=== PATIENT | male | born 1965 | race Caucasian/White ===

== ENCOUNTER 2018-09-04 05:48 | Observation (INO) ==
--- NOTE | 2018-09-02 15:48 | EKG Report ---
Test Performed on : 09/02/2018 3:34:08 PM Test Reason : PAT Blood Pressure : / mmHG Vent. Rate : 065 BPM Atrial Rate : 065 BPM P-R Int : 136 ms QRS Dur : 106 ms QT Int : 398 ms P-R-T Axes : 025 032 016 degrees QTc Int : 413 ms Normal sinus rhythm. Normal ECG When compared with ECG of 11-FEB-2016 06:39, Vent. rate has increased BY 22 BPM Confirmed by Roberto MENCHACA, Jorje Ferrer ([id number]) on 09/04/2018 8:20:09 AM
--- NOTE | 2018-09-02 16:19 | Diag Imaging Result Doc PS360 ---
EXAM: CHEST-2 VIEWS HISTORY: PAT TECHNIQUE: Chest two views COMPARISON: 05/03/2015 FINDINGS: The lungs are well expanded. The heart is not enlarged. The vessels are not distended. There are no infiltrates. No pleural effusions. IMPRESSION: No acute abnormality. Electronically signed by Abiodun Enamorado 09/02/2018 4:16 PM
[2018-09-02 16:46] LABS: URINE SOURCE VOIDED
[2018-09-02 16:48] LABS: BASO# 0.05 X1000 (0.0-0.2); BASO% 0.5 % (0.0-0.8); EOS# 0.41 X1000 (0.0-0.7); EOS% 4.4 % (0.0-10.0); HEMATOCRIT 44.5 % (42.0-52.0); HEMOGLOBIN 15.2 g/dL (14.0-18.0); IMM GRAN# 0.03 X1000 (0.0-0.04); IMM GRAN% 0.3 % (0.0-0.5); LYMPH# 1.74 X1000 (1.2-3.4); LYMPH% 18.8 % (20.5-51.1); MCH 31.4 PG (27-31); MCHC 34.2 g/dL (33-37); MCV 91.9 FL (81-99); MONO# 0.59 X1000 (0.11-0.59); MONO% 6.4 % (1.7-9.3); MPV 10.7 FL (7.4-10.4); NEUT# 6.44 X1000 (1.4-6.5); NEUT% 69.6 % (42.2-75.2); PLT 206 X1000 (130-400); RBC 4.84 XMIL (4.7-6.1); WBC 9.26 X1000 (4.8-10.8)
[2018-09-02 16:51] LABS: BILIRUBIN URINE NEGATIVE (NEGATIVE); BLOOD URINE NEGATIVE (NEGATIVE); COLOR YELLOW; GLUCOSE URINE NEGATIVE (NEGATIVE); KETONE URINE NEGATIVE (NEGATIVE); LEUKOCYTES URINE NEGATIVE (NEGATIVE); NITRITE URINE NEGATIVE (NEGATIVE); PH URINE 6.5; PROTEIN URINE NEGATIVE (NEGATIVE); SP GRAVITY URINE 1.017; TURBIDITY URINE CLEAR (CLEAR); UROBILINOGEN URINE NORMAL (NORMAL)
[2018-09-02 16:52] LABS: UR EPITHELIAL CELLS <10 /HPF (<10); URINE BACTERIA NEGATIVE /HPF; URINE RBC <10 /HPF (<10); URINE WBC <10 /HPF (<10)
[2018-09-02 17:14] LABS: ALB/GLOB RATIO 1.7; ALBUMIN 4.4 g/dL (3.5-5.0); CALCIUM 9.4 mg/dL (8.8-10.2); CREATININE 1.3 mg/dL (0.7-1.2); POTASSIUM 4.6 mmol/L (3.5-5.1); TOTAL BILIRUBIN 0.37 mg/dL (0.20-1.00)
[2018-09-04] MEDS ORDERED: XYLOCAINE-MPF 2% ONE ×2 (06:32→09:05)
[2018-09-04] MEDS ORDERED: DIPRIVAN 1% ONE ×2 (06:32→08:07)
[2018-09-04] MEDS ORDERED: QUELICIN (DOSE) ONE ×2 (06:34→09:05)
[2018-09-04] MEDS ORDERED: LR 1,000 ML ONE ×2 (06:40→08:20)
[2018-09-04] MEDS ORDERED: KEFZOL 1 GM/D5W 1 GM/50 ML IVPB ONE (06:40)
[2018-09-04] MEDS ORDERED: TRANSDERM-SCOP ONE (07:40)
[2018-09-04] MEDS ORDERED: SENSORCAINE 0.5%-EPI 1:200,000 ONE (08:20)
[2018-09-04] MEDS ORDERED: ROBINUL ONE ×2 (09:05→10:18)
[2018-09-04] MEDS ORDERED: SODIUM CHLORIDE 0.9% 10 ML ONE (09:05)
[2018-09-04] MEDS ORDERED: DECADRON ONE (09:05)
[2018-09-04] MEDS ORDERED: ZOFRAN ONE (09:05)
[2018-09-04] MEDS ORDERED: NORCURON ONE (09:05)
[2018-09-04] MEDS ORDERED: NEOSTIGMINE ONE (09:18)
[2018-09-04] MEDS ORDERED: TORADOL ONE (09:46)
[2018-09-04] MEDS ORDERED: D5 1/2 NS 1,000 ML ONE (11:32)
[2018-09-04] MEDS: MORPHINE ONE ×2 (11:37→11:42)
[2018-09-04] MEDS ORDERED: NORCO-10 ONE (11:41)
--- NOTE | 2018-09-04 11:42 | OPERATIVE NOTE ---
PROCEDURE DATE: 09/04/2018 PREOPERATIVE DIAGNOSIS: 1. Recurrent ventral hernia. 2. Previous umbilical hernia repair 10 years ago. 3. New hernia was 3 to 4 inches superior to the previous hernia repair. PROCEDURE: Laparoscopy, laparotomy with recurrent hernia repair. DESCRIPTION OF PROCEDURE IN DETAIL: The patient was brought to the operating room. After satisfactory induction of IV and endotracheal anesthesia, athrombic TEDs were placed. His abdomen was broadly prepped and draped in the appropriate manner. Initially, a right epigastric approach was used to place a 10 mm trocar with Marcaine with epinephrine placed. The abdomen was insufflated. Examination revealed incarcerated omental contents and a new hernia superior to the previous mesh. The mesh from 2008 was seen with fairly dense omental and 1 small bowel adhesion. The left side of the abdomen was subsequently infiltrated, and a 10 and a 5 mm trocar were placed. With manual extraction, the omental contents in the new hernia were reduced with electrocautery and manual pulling. There was no bowel involvement in this. The previous mesh had some omental adhesions, as well as 1 small bowel adhesion. These were peeled down with no evidence of small bowel injury. The area was then marked; it appeared to be covered by 15 round Parietex mesh proximal to the old mesh with a lower border overlapping the old 8 mm mesh. With the Cole technique, this was used to tack-up every one of the Cole sutures pulled through and, for this reason, attempts at repair were unsuccessful. For this reason, a small laparotomy incision was made and the hernia defect was closed with #1 Prolene. The mesh was tacked to the fascia with 0 Surgilon. This covered the defect completely. On completion and after accounting for all laparotomy sponges, the closure was initiated. The fascia of the open defect was closed with interrupted 0 Prolene, subcutaneous was closed with 3-0 Vicryl, skin itself with stainless steel clips. The Hernández area underwent a Surgilon closure of the fascial defect, and the remaining incisions were all closed with stainless steel clips. Sterile dressing and abdominal binder were applied. The patient was subsequently awakened and extubated in the operating room and transferred to recovery. Estimated blood loss was 10-20 mL. cc: Tima Bernal MD
[2018-09-04] MEDS: D5 1/2 NS 1,000 ML IV SCH ×2 (13:18→21:19)
[2018-09-04] MEDS: NORCO-10 PO PRN ×2 (14:31→19:49)
[2018-09-04] MEDS: NEURONTIN PO SCH (17:51)
[2018-09-04] MEDS: MORPHINE IV PRN (17:52)
[2018-09-04] MEDS: ZOFRAN IV PRN (18:20)
[2018-09-04] MEDS: PERIDEX MT SCH (21:12)
[2018-09-04 22:07] LABS: URINE SOURCE CATH
[2018-09-05 00:36] LABS: BILIRUBIN URINE NEGATIVE (NEGATIVE); BLOOD URINE NEGATIVE (NEGATIVE); COLOR YELLOW; GLUCOSE URINE NEGATIVE (NEGATIVE); KETONE URINE NEGATIVE (NEGATIVE); LEUKOCYTES URINE NEGATIVE (NEGATIVE); NITRITE URINE NEGATIVE (NEGATIVE); PH URINE 6.5; PROTEIN URINE TRACE mg/dL (NEGATIVE); SP GRAVITY URINE 1.021; TURBIDITY URINE CLEAR (CLEAR); UROBILINOGEN URINE NORMAL (NORMAL)
[2018-09-05 00:42] LABS: UR EPITHELIAL CELLS <10 /HPF (<10); URINE BACTERIA NEGATIVE /HPF; URINE RBC <10 /HPF (<10); URINE WBC <10 /HPF (<10)
[2018-09-05] MEDS: D5 1/2 NS 1,000 ML IV SCH ×3 (01:46→10:15)
[2018-09-05] MEDS: ZOFRAN IV PRN ×2 (06:14→12:24)
[2018-09-05] MEDS: NORCO-10 PO PRN ×2 (06:14→10:39)
[2018-09-05 06:48] LABS: BASO# 0.01 X1000 (0.0-0.2); BASO% 0.1 % (0.0-0.8); EOS# 0.05 X1000 (0.0-0.7); EOS% 0.4 % (0.0-10.0); HEMATOCRIT 40.1 % (42.0-52.0); HEMOGLOBIN 13.3 g/dL (14.0-18.0); IMM GRAN# 0.02 X1000 (0.0-0.04); IMM GRAN% 0.2 % (0.0-0.5); LYMPH# 1.22 X1000 (1.2-3.4); LYMPH% 9.4 % (20.5-51.1); MCH 31.6 PG (27-31); MCHC 33.2 g/dL (33-37); MCV 95.2 FL (81-99); MONO# 0.97 X1000 (0.11-0.59); MONO% 7.4 % (1.7-9.3); MPV 10.3 FL (7.4-10.4); NEUT# 10.77 X1000 (1.4-6.5); NEUT% 82.5 % (42.2-75.2); PLT 189 X1000 (130-400); RBC 4.21 XMIL (4.7-6.1); RDW 13.1 % (11.5-14.5); WBC 13.04 X1000 (4.8-10.8)
[2018-09-05 07:33] LABS: AGAP 10; BUN 17 mg/dL (8-22); CALCIUM 8.1 mg/dL (8.8-10.2); CHLORIDE 104 mmol/L (98-107); COSMO 280; CREATININE 1.1 mg/dL (0.7-1.2); ESTIMATED GFR > 60; GLUCOSE 110 mg/dL (70-104); POTASSIUM 4.6 mmol/L (3.5-5.1); SODIUM 139 mmol/L (136-145); TCO2 25 mmol/L (25-35)
[2018-09-05 07:48] VITALS: BP 112/64
[2018-09-05] MEDS: NEURONTIN PO SCH ×2 (08:22→12:24)
[2018-09-05] MEDS: PERIDEX MT SCH (08:23)
[2018-09-05] MEDS ORDERED: FLOMAX PO ONE (09:19)
[2018-09-05] MEDS: MORPHINE IV PRN (12:24)
== END 2018-09-05 12:52 | disposition home or self-care (01) ==
LOC: OR 05:48 → DIRADM 12:36 → INTOOBSV 12:36 → 4N 12:37
PROVIDERS: ADMIT Surgery; ATTEND Surgery
CPT/HCPCS: 71020; 71046; 80048; 80053; 81001; 84153; 85025; 93005; 93010; 94761; 94799; A9270; C1781; G0103; J0330; J0690; J1100; J1885; J2270; J2405; J7120; XXXXX

== ENCOUNTER 2018-09-07 15:01 | Inpatient (IN) ==
[2018-09-07] MEDS ORDERED: ZOSYN 3.375 GM in NS 50 ML IV ONE (15:24)
[2018-09-07] MEDS ORDERED: VANCOMYCIN 1 GM/NS 1 GM/250 ML IVPB IV ONE (15:24)
[2018-09-07] MEDS ORDERED: NS 3,500 ML IV ONE (15:24)
[2018-09-07] MEDS ORDERED: ZOFRAN IV ONE ×2 (15:26→19:24)
[2018-09-07] MEDS ORDERED: MORPHINE IV ONE ×2 (15:26→18:59)
[2018-09-07 16:08] LABS: AGAP 11; ALB/GLOB RATIO 1.6; ALBUMIN 3.7 g/dL (3.5-5.0); ALKALINE PHOSPHATASE 96 U/L (32-122); BASO# 0.02 X1000 (0.0-0.2); BASO% 0.2 % (0.0-0.8); BUN 17 mg/dL (8-22); CALCIUM 8.5 mg/dL (8.8-10.2); CHLORIDE 104 mmol/L (98-107); CK PROFILE 175 U/L (24-204); COSMO 282; CREATININE 1.2 mg/dL (0.7-1.2); EOS# 0.14 X1000 (0.0-0.7); EOS% 1.1 % (0.0-10.0); ESTIMATED GFR > 60; GLUCOSE 120 mg/dL (70-104); GOT 33 U/L (10-34); GPT 42 U/L (10-44); HEMATOCRIT 43.1 % (42.0-52.0); HEMOGLOBIN 14.4 g/dL (14.0-18.0); IMM GRAN# 0.04 X1000 (0.0-0.04); IMM GRAN% 0.3 % (0.0-0.5); LYMPH# 0.29 X1000 (1.2-3.4); LYMPH% 2.3 % (20.5-51.1); MCH 31.6 PG (27-31); MCHC 33.4 g/dL (33-37); MCV 94.5 FL (81-99); MONO# 0.54 X1000 (0.11-0.59); MONO% 4.2 % (1.7-9.3); MPV 10.4 FL (7.4-10.4); NEUT# 11.76 X1000 (1.4-6.5); NEUT% 91.9 % (42.2-75.2); PLT 157 X1000 (130-400); RBC 4.56 XMIL (4.7-6.1); RDW 13.1 % (11.5-14.5); SODIUM 140 mmol/L (136-145); TCO2 25 mmol/L (25-35); TOTAL BILIRUBIN 2.39 mg/dL (0.20-1.00); WBC 12.79 X1000 (4.8-10.8)
[2018-09-07 16:17] LABS: INR 1.03; PROTIME 14.3 Seconds (11.0-16.0); PTT 26.7 Seconds (22.3-41.8)
[2018-09-07 16:35] LABS: EOS 1 % (1-10); LYMPHS 4 % (21-51); MONO 4 % (1-9); SEGS 91 % (42-75)
[2018-09-07 17:13] LABS: URINE SOURCE CLEAN CATCH
[2018-09-07 17:17] LABS: BILIRUBIN URINE SMALL (NEGATIVE); BLOOD URINE SMALL (NEGATIVE); COLOR YELLOW; GLUCOSE URINE NEGATIVE (NEGATIVE); KETONE URINE 40 mg/dL (NEGATIVE); LEUKOCYTES URINE NEGATIVE (NEGATIVE); NITRITE URINE NEGATIVE (NEGATIVE); PROTEIN URINE 200 mg/dL (NEGATIVE); SP GRAVITY URINE 1.033; TURBIDITY URINE HAZY (CLEAR); UR EPITHELIAL CELLS <10 /HPF (<10); URINE BACTERIA NEGATIVE /HPF; URINE RBC <10 /HPF (<10); URINE WBC <10 /HPF (<10); UROBILINOGEN URINE 4 mg/dL (NORMAL)
--- NOTE | 2018-09-07 18:39 | Diag Imaging Result Doc PS360 ---
EXAM: CT ABD/PELVIS/PULM ARTERIES INDICATION: chest pain, abd pain, s/p surgery x 4 days TECHNIQUE: This exam was performed using automated exposure control, adjustment of mA or kV according to patient size, and/or use of iterative reconstruction technique. Thin section axial images through the chest and 3-D MIPS were obtained. Conventional imaging through the abdomen and pelvis was performed. COMPARISON: 02/10/2016 FINDINGS: CTA CHEST: The pulmonary artery contrast bolus is somewhat suboptimal with morbid contrast in the aorta. This may limit sensitivity for detecting small distal pulmonary emboli. However, there are no discrete pulmonary artery filling defect to indicate pulmonary embolism. There is no evidence of aortic dissection or aneurysm. There is no cardiomegaly. There is no evidence of significant mediastinal or hilar lymphadenopathy. There is bilateral dependent subsegmental atelectasis at the mid and lower lung zones, mainly in the lower lobes. The lungs are clear, otherwise. There is no pleural fluid collection and no pneumothorax. CT ABDOMEN/PELVIS: The liver, gallbladder, spleen, pancreas, and adrenal glands are essentially unremarkable. There are a couple of small simple appearing renal cysts bilaterally. The kidneys are unremarkable, otherwise. The urinary bladder is unremarkable. There has been a very recent ventral abdominal wall hernia repair. There are droplets of postsurgical gas at the ventral abdominal wall. Surgical mesh is noted. Only a small hernia containing fat remains. There is postsurgical stranding involving the mesentery of the ventral abdominal wall. There is a small fluid collection underlying the surgical mesh that probably represents a seroma measuring up to 8.1 x 1.6 cm axially. There are multiple distended loops of small bowel with air-fluid levels. The distal small bowel is nondistended. This distention probably represents postsurgical ileus. However, there is a loop of small bowel that underlies the surgical site that exhibits nonspecific mild to moderate wall thickening. The remainder of the GI tract is grossly unremarkable. IMPRESSION: 1.No evidence of pulmonary embolus. 2.Bilateral subsegmental atelectasis. 3.Extensive postsurgical changes related to a very recent ventral abdominal wall hernia repair as detailed above. 4.Multiple distended loops of small bowel proximal to the surgical site that probably represents postsurgical ileus. However, there is a loop of small bowel that underlies the surgical mesh that exhibits mild to moderate wall thickening. The distal small bowel is decompressed. Electronically signed by Derek Recio 09/07/2018 6:36 PM
[2018-09-07] MEDS ORDERED: MORPHINE IV PRN (19:53)
[2018-09-07] MEDS ORDERED: NS 1,000 ML IV ONE (19:53)
[2018-09-07] MEDS ORDERED: DULCOLAX PR ONE (21:11)
[2018-09-07] MEDS: ROBAXIN PO SCH (21:25)
[2018-09-07] MEDS ORDERED: ZOSYN 3.375 GM in NS 50 ML IV SCH (22:00)
--- NOTE | 2018-09-07 22:09 | PROVIDER DOCUMENTATION ---
This chart was entered by Nancy Aguilar Scribe, acting as scribe for Anant Santana MD. HPI-General Adult - General Chief Complaint: Post Op Complaint Stated Complaint: ABDOMINAL PAIN/NAUSEA Time Seen by Provider: 09/07/18 15:07 Source: patient Allergies/Adverse Reactions: Patient Allergies Allergy/AdvReac Type Severity Reaction Status Date / Time hydromorphone [From Dilaudid] AdvReac NAUSEA/VOMI Verified 09/02/18 15:31 TING Home Medications: Home Medication List Medication Instructions Recorded Confirmed Last Taken Type Gabapentin 1,200 mg PO TID 10/08/16 09/07/18 09/03/18 08:00 History 1200 Methocarbamol [Robaxin-750] 750 mg PO TID 09/04/18 09/04/18 09/03/18 12:00 History Docusate Sodium [Colace] 100 mg PO BID #40 cap 09/05/18 09/07/18 Unknown Rx Hydrocodone/Acetaminophen [Callery 1 ea PO Q6H PRN #20 tab 09/05/18 09/07/18 Unknown Rx 10-325 Tablet] Tamsulosin [Flomax] 0.4 mg PO DAILY #20 cap 09/05/18 09/07/18 Unknown Rx Ondansetron HCl [Zofran] 8 mg PO Q4H PRN 09/07/18 09/07/18 Unknown History - History of Present Illness -Gen Adult Nature of Presenting Problems: 52 y/o male presents to ED with intractable N/V and abdominal pain onset this morning. Pt reports he has taken phenergan and zofran with no relief from his symptoms. Pt states he had a laparotomy with Dr. Bernal 3 days ago and was discharged from the hospital 2 days ago. Pt reports he was given Callery, but had persistent pain and they increased his dose. Pt states he had an umbilical repair with mesh in 2009. Pt reports he had a bowel obstruction in 2011, but did not have surgery because he did not have insurance. Pt also complains of chest pain onset 2 days ago. Pt states he has hx 48 blood clots. Pt is alert and oriented. Location of Pain/Injury: reports: chest, abdomen Pain Radiation: reports: no radiation Quality of Pain: reports: sharp Severity: reports: severe Onset/Duration: reports: 2 days ago, this morning Timing: reports: still present Context/Activities at Onset: reports: none Modifying Factors: worse with: palpation Associated Symptoms: reports: chest pain, nausea, vomiting, other (abdominal pain) Similar Symptoms Previously?: No Recently seen or treated by another doctor?: Yes (laparotomy yesterday) Review of Systems - Adult - REVIEW OF SYSTEMS - ADULT Constitutional: denies: chills, fever Eyes: reports: no symptoms reported Ears, Nose, Mouth & Throat: reports: no symptoms reported Cardiovascular: reports: chest pain. denies: palpitations Respiratory: denies: cough, shortness of breath Gastrointestinal: reports: abdominal pain, nausea, vomiting. denies: diarrhea Genitourinary: reports: no symptoms reported Musculoskeletal: denies: back pain, joint pain Integumentary: reports: no symptoms reported Neurological: denies: dizziness/vertigo, seizure Psychiatric: reports: no symptoms reported Endocrine: reports: no symptoms reported Hematologic/Lymphatic: reports: no symptoms reported Allergic/Immunologic: reports: no symptoms reported All Other Systems: Reviewed and Negative Past History - Adult - PAST MEDICAL HISTORY-ADULT Review of Records: reports: Old Records Reviewed, Nursing Assessment Review, Medications Reviewed Major Childhood Illnesses: reports: denies history Cardiovascular: reports: 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) Respiratory: reports: denies history Gastrointestinal: reports: denies history, GERD Obstetrical/Gynecological: reports: denies history Genitourinary: reports: denies history Musculoskeletal: reports: chronic pain, intervertebral disc disease Neurological: reports: denies history Endocrine/Immune: reports: denies history Other Conditions: reports: denies history - PRIOR SURGERIES/PROCEDURES Surgical/Procedure History: reports: recent surgery (laparatomy yesterday), hernia repair, back/neck, other (maxillofacial reconstruction; laminectomy) - PRIOR HOSPITALIZATIONS Prior Hospitalizations: reports: none - IMMUNIZATION STATUS Childhood Immunizations: See Nurse Assessment Flu Vaccine: See Nurse Assessment - FAMILY HISTORY Family History: reviewed, not pertinent - SOCIAL HISTORY Smoking: quit greater than 1 year Substance Use: none/never Alcohol Use Frequency: never Living Situation: family Physical Exam-General - PHYSICAL EXAM-ADULT Initial Vital Signs Reviewed: Yes - CONSTITUTIONAL General Appearance: appears well, alert, severe distress - EYES Eyes: PERRL/EOMI, pink conjunctivae - HEAD, EARS, NOSE, MOUTH & THROAT HENMT: normocephalic/atraumatic, moist mucous membranes, normal ENT inspection - NECK Neck: non-tender, full range of motion - RESPIRATORY Respiratory: chest non-tender, lungs clear, normal breath sounds - CARDIOVASCULAR Cardiovascular: normal peripheral pulses, regular rate, rhythm - GASTROINTESTINAL (ABDOMEN) Abdominal Exam: abnormal bowel sounds (hypoactive), distended, tenderness (diffuse) - MUSCULOSKELETAL Back Exam: normal inspection, no CVA tenderness Extremity: normal range of motion, non-tender, normal gait - SKIN Integumentary: normal color, warm/dry - NEUROLOGIC Neurologic: grossly normal - PSYCHIATRIC Psych/Mental Status: normal mood/affect, normal thought content, normal thought process Progress - PLAN OF CARE/RESULTS Progress/Plan/Lab Results: Vital Signs - 8 hr 09/07/18 15:08 Temperature 99.2 F Pulse Rate 107 H Respiratory Rate 21 Blood Pressure 135/87 O2 Sat by Pulse Oximetry 88 L Orders Category Date Time Status Cardiac Monitoring DIRECTED Care 09/07/18 15:23 Active IV Insertion ORDERED Care 09/07/18 15:23 Completed Notify MD of + Sepsis Screen NOW Care 09/07/18 15:23 Active Notify Physician As Ordered Care 09/07/18 15:[address] ABD/PELVIS/PULM ARTERIES [CT] Stat Exams 09/07/18 15:25 Ordered BLOOD CULTURE [BLDCUL] Stat Lab 09/07/18 15:35 Ordered CBC WITH DIFF [HEME] Stat Lab 09/07/18 15:35 Results CK PROFILE [SP CHEM] Stat Lab 09/07/18 15:35 Received COMPREHENSIVE METABOLIC PANEL [CHEM] Stat Lab 09/07/18 15:35 Received LACTATE, PLASMA [CHEM] Lab 09/07/18 15:35 Received LACTATE, PLASMA [CHEM] Lab 09/07/18 18:30 Uncollected LACTATE, PLASMA [CHEM] Lab 09/07/18 21:30 Uncollected PROTIME WITH INR [COAG] Stat Lab 09/07/18 15:35 Received PTT [COAG] Stat Lab 09/07/18 15:35 Received TROPONIN T Stat Lab 09/07/18 15:35 Received URINALYSIS W/POSS RFLX CULT [URINALYSIS] Stat Lab 09/07/18 15:23 Uncollected 0.9% Sodium Chloride Inj [Ns] 3,500 ml Med 09/07/18 15:24 Active IV 999 mls/hr Morphine Med 09/07/18 15:26 Discontinued 10 mg IV NOW ONE Ondansetron [Zofran] Med 09/07/18 15:26 Discontinued 8 mg IV NOW ONE Piperacillin/Tazobactam [Zosyn] 3.375 gm Med 09/07/18 15:24 Active 0.9% Sodium Chloride Inj [Ns] 50 ml IV NOW Vancomycin 1 gm/Ns Med 09/07/18 15:24 Active 1 gm in 250 ml IV NOW Oxygen Device Stat Oth 09/07/18 15:23 Active A/P: Post op illius. increased white count. Nausea and vomiting under control. vitals stable. Dr naqvi acceted. Result Diagrams: 09/07/18 15:35 09/07/18 15:35 - CONSULTS/PCP/HOSPITALIST Notification #1 *Consult/PCP/Hospitalist*: Dr naqvi Time Discussed: 15:20 Consult Disposition: Admit Departure - Departure Date of Disposition Decision: 09/07/18 Time of Disposition Decision: 15:30 DIAGNOSIS: Postoperative ileus Disposition: ADMITTED INPATIENT 09 Certified Medical Emergency: Emergent Condition: Stable - Critical Care Note This patient required my direct & personal management of CC.: No Attestation - Physician/ PAO Attestation Patient care was provided by Advanced Practice Provider:: No The physician spent face to face time with patient:: Yes Advanced Practice Provider documentation review:: Supervising physician onsite and consulted in the evaluation and care of this patient. The physician did have a face to face encounter with the patient. This chart was documented by the indicated scribe, (Nancy Aguilar Scribe) and accurately reflects the services I performed and decisions made by me, Anant Santana MD, as attested by the provider's signature.
[2018-09-08] MEDS: MORPHINE IV PRN ×6 (00:56→23:33)
[2018-09-08] MEDS: ZOFRAN IV PRN ×5 (00:56→20:01)
[2018-09-08 06:39] LABS: BASO# 0.02 X1000 (0.0-0.2); BASO% 0.2 % (0.0-0.8); EOS# 0.28 X1000 (0.0-0.7); HEMOGLOBIN 12.6 g/dL (14.0-18.0); LYMPH# 0.65 X1000 (1.2-3.4); LYMPH% 6.9 % (20.5-51.1); MCH 32.5 PG (27-31); MCHC 33.2 g/dL (33-37); MCV 97.9 FL (81-99); MONO# 0.99 X1000 (0.11-0.59); MONO% 10.5 % (1.7-9.3); MPV 10.1 FL (7.4-10.4); NEUT# 7.47 X1000 (1.4-6.5); NEUT% 79.4 % (42.2-75.2); PLT 168 X1000 (130-400); RBC 3.88 XMIL (4.7-6.1); RDW 13.2 % (11.5-14.5); WBC 9.41 X1000 (4.8-10.8)
[2018-09-08 07:20] LABS: CALCIUM 8.2 mg/dL (8.8-10.2); CREATININE 1.3 mg/dL (0.7-1.2); POTASSIUM 4.3 mmol/L (3.5-5.1)
--- NOTE | 2018-09-08 08:12 | Diag Imaging Result Doc PS360 ---
EXAM: FLAT/UPRIGHT ABD/1 VIEW CHEST INDICATION: recent surgery TECHNIQUE: 4 views COMPARISON: 09/02/2018 FINDINGS: There are multiple surgical skin sue at the ventral abdominal wall. There are gas-distended loops of small bowel with air-fluid levels in the mid abdomen and left upper quadrant. This was also seen on a recent CT. This likely represents postsurgical ileus. However, only proximal loops of small bowel are distended for component of obstruction cannot be excluded. There is no evidence of large volume free abdominal gas. There is bibasilar subsegmental atelectasis, more prominent on the left. Otherwise, the lungs are grossly clear. There is no discrete pleural fluid collection or pneumothorax. The cardiomediastinal silhouette and central vasculature are grossly unremarkable. IMPRESSION: 1.Gas-distended loops of small bowel similar to a recent CT. Please see above discussion. 2.Subsegmental atelectasis at the lung bases. Electronically signed by Derek Recio 09/08/2018 8:10 AM
[2018-09-08] MEDS: ROBAXIN PO SCH (09:13)
[2018-09-08] MEDS ORDERED: FLEET ENEMA PR ONE ×2 (10:18→15:00)
[2018-09-08] MEDS: D5 1/2 NS + KCL 20 MEQ 1,000 ML IV SCH ×2 (10:49→20:01)
[2018-09-08] MEDS: ZOSYN 3.375 GM in NS 50 ML IV SCH ×2 (15:20→20:01)
[2018-09-08] MEDS: SODIUM CHLORIDE 0.9% INJ PRN (23:33)
[2018-09-08] MEDS: PHENERGAN IV PRN (23:33)
[2018-09-09] MEDS: ZOSYN 3.375 GM in NS 50 ML IV SCH ×4 (03:10→22:46)
[2018-09-09] MEDS: MORPHINE IV PRN ×3 (03:39→11:49)
[2018-09-09] MEDS: ZOFRAN IV PRN ×2 (03:39→08:11)
[2018-09-09] MEDS: D5 1/2 NS + KCL 20 MEQ 1,000 ML IV SCH ×3 (05:13→22:46)
[2018-09-09] MEDS: SODIUM CHLORIDE 0.9% INJ PRN (06:09)
[2018-09-09] MEDS: PHENERGAN IV PRN ×3 (06:09→16:25)
[2018-09-09 06:55] LABS: BASO# 0.01 X1000 (0.0-0.2); BASO% 0.1 % (0.0-0.8); EOS# 0.16 X1000 (0.0-0.7); EOS% 2.3 % (0.0-10.0); HEMOGLOBIN 12.6 g/dL (14.0-18.0); LYMPH# 0.84 X1000 (1.2-3.4); LYMPH% 12.3 % (20.5-51.1); MCHC 33.2 g/dL (33-37); MCV 96.4 FL (81-99); MONO# 0.73 X1000 (0.11-0.59); MONO% 10.7 % (1.7-9.3); MPV 10.2 FL (7.4-10.4); NEUT# 5.11 X1000 (1.4-6.5); NEUT% 74.6 % (42.2-75.2); PLT 195 X1000 (130-400); RBC 3.94 XMIL (4.7-6.1); RDW 12.8 % (11.5-14.5); WBC 6.85 X1000 (4.8-10.8)
[2018-09-09 07:15] LABS: CALCIUM 8.4 mg/dL (8.8-10.2); CREATININE 1.3 mg/dL (0.7-1.2); POTASSIUM 3.8 mmol/L (3.5-5.1)
--- NOTE | 2018-09-09 08:35 | Diag Imaging Result Doc PS360 ---
EXAM: FLAT/UPRIGHT ABD/1 VIEW CHEST INDICATION: ileus TECHNIQUE: COMPARISON: None. FINDINGS: There are still gas-distended loops of small bowel mainly in the left upper quadrant with air-fluid levels. The distention is stable to marginally improved. There is no evidence of large volume free abdominal gas. The remainder of the abdomen is stable. Subsegmental atelectasis at the lung bases, more prominent on the left, is essentially stable. No new consolidation is identified. The cardiomediastinal silhouette and central vasculature are grossly unremarkable. IMPRESSION: Stable to marginal improvement of gaseous distention of small bowel. Electronically signed by Derek Recio 09/09/2018 8:32 AM
[2018-09-09] MEDS ORDERED: FLEET ENEMA PR ONE (12:11)
[2018-09-09] MEDS: NORCO-10 PO PRN (16:25)
[2018-09-10] MEDS: D5 1/2 NS + KCL 20 MEQ 1,000 ML IV SCH ×3 (03:30→13:17)
[2018-09-10] MEDS: ZOSYN 3.375 GM in NS 50 ML IV SCH ×3 (03:30→13:34)
[2018-09-10] MEDS: NORCO-10 PO PRN ×4 (06:35→18:57)
[2018-09-10 06:52] LABS: BASO# 0.01 X1000 (0.0-0.2); BASO% 0.1 % (0.0-0.8); EOS# 0.23 X1000 (0.0-0.7); HEMATOCRIT 37.7 % (42.0-52.0); HEMOGLOBIN 12.5 g/dL (14.0-18.0); LYMPH% 14.4 % (20.5-51.1); MCH 31.7 PG (27-31); MCHC 33.2 g/dL (33-37); MCV 95.7 FL (81-99); MONO# 0.68 X1000 (0.11-0.59); MONO% 8.9 % (1.7-9.3); MPV 10.1 FL (7.4-10.4); NEUT# 5.62 X1000 (1.4-6.5); NEUT% 73.6 % (42.2-75.2); PLT 206 X1000 (130-400); RBC 3.94 XMIL (4.7-6.1); RDW 12.8 % (11.5-14.5); WBC 7.64 X1000 (4.8-10.8)
[2018-09-10 07:19] LABS: CALCIUM 8.3 mg/dL (8.8-10.2); CREATININE 1.3 mg/dL (0.7-1.2); POTASSIUM 3.9 mmol/L (3.5-5.1)
--- NOTE | 2018-09-10 09:52 | Diag Imaging Result Doc PS360 ---
EXAM: FLAT/UPRIGHT ABD/1 VIEW CHEST HISTORY: ileus TECHNIQUE: Flat and upright with chest, four views COMPARISON: 09/09/2018 FINDINGS: There are increased interstitial markings in the left base similar to the prior exam which may simply be atelectasis or fibrosis. No consolidation. No cardiomegaly. No free air beneath the diaphragm. There are multiple skin sue overlying the abdomen. There are air-fluid levels in the upper abdomen within several distended small bowel loops. The distal small bowel loops are not dilated. IMPRESSION: Mild interval improvement. Electronically signed by Abiodun Enamorado 09/10/2018 9:49 AM
[2018-09-10] MEDS: NEURONTIN PO SCH ×2 (13:17→18:28)
[2018-09-10] MEDS: ROBAXIN PO SCH (18:28)
[2018-09-11] MEDS: NORCO-10 PO PRN ×4 (08:34→20:41)
[2018-09-11] MEDS: NEURONTIN PO SCH ×3 (08:34→16:42)
[2018-09-11] MEDS: ROBAXIN PO SCH ×3 (08:34→20:08)
[2018-09-12] MEDS: NORCO-10 PO PRN ×3 (00:48→08:53)
[2018-09-12 07:34] VITALS: BP 134/88
[2018-09-12] MEDS ORDERED: NEURONTIN PO SCH (09:00)
[2018-09-12] MEDS: ROBAXIN PO SCH (09:33)
--- NOTE | 2018-09-17 11:35 | HISTORY AND PHYSICAL ---
DIAGNOSIS: Partial small-bowel obstruction with history of recent incisional hernia repair. HISTORY OF PRESENT ILLNESS: The patient is an obese 52-year-old white male with a recent history of repair of a ventral hernia and 8 years ago, he had laparoscopic repair of an umbilical hernia. The new hernia was 3 to 4 inches above the previous repair. At that repair a week ago, laparoscopy and laparotomy were performed with placement of a new piece of mesh above the existing piece of mesh. He was allowed home on the day surgery. He subsequently returned to the emergency room with abdominal pain and nausea. A flat and upright revealed a partial small-bowel obstruction with a paucity of distal small bowel and colon gas. He was admitted, given sips of clear liquids with eventual resolution of the ileus type situation. The had fixed of a large meal of chicken pot pie out that he had eaten the whole nassar of it with subsequent development of the abdominal pain, distention and vomiting. Otherwise, once the symptoms resolved, he was allowed home. PHYSICAL EXAMINATION: GENERAL: Reveals a heavy-set white male, in moderate discomfort. HEAD AND NECK: He is normocephalic, atraumatic. Pupils equal and reactive. EARS, NOSE, AND THROAT: Negative. CHEST: Clear. ABDOMEN: Protuberant with well-healing incisions. There are some [distention of *] The abdomen is diffusely nontender. GENITOURINARY: Negative. NEUROLOGICAL: Intact. IMPRESSION: Ileus, possible partial small-bowel obstruction. PLAN: Conservative therapy with no plans for surgery at this time. cc: Tima Bernal MD MTDD
--- NOTE | 2018-09-18 06:50 | DISCHARGE SUMMARY ---
ADMISSION DATE: 09/07/2018 DISCHARGE DATE: 09/12/2018 DIAGNOSIS: Recent hernia repair surgery with a partial small-bowel obstruction or ileus. The symptoms resolved. The patient tolerated his dietary advancements once the ileus resolved, and he was allowed home. HOSPITAL COURSE: The patient is a 52-year-old, obese white male, who had had a previous umbilical hernia repair 6 to 8 years ago. He subsequently developed a new hernia 2 to 3 inches above the previous repair. This was repaired as an outpatient about 5 to 6 days prior to this admission. He had been tolerating his dietary advancements well, however, he ate a large heavy meal of chicken pot pie with subsequent development of abdominal pain, vomiting and distention. Abdominal x-rays revealed a partial small-bowel obstruction versus ileus. He is admitted with conservative therapy only. He did not require an NG tube. The symptoms eventually resolved, and he tolerated his otherwise dietary advancements well. He was subsequently allowed home on 09/12. Incisions appear to be healing well, and he will be seen in the office in 1 week's time. cc: Tima Bernal MD
== END 2018-09-12 10:15 | disposition home or self-care (01) | DRG 390 ==
LOC: ED 15:01 → 4N 20:31
PROVIDERS: ADMIT Surgery; ATTEND Surgery
CPT/HCPCS: 71275; 74022; 74177; 80048; 80053; 81001; 82550; 83605; 84484; 85025; 85610; 85730; 87040; 94761; 94799; 96361; 96365; 96366; 96367; 96375; 96376; 99285; A9270; C1781; J0330; J0690; J1100; J1885; J2270; J2405; J2543; J2550; J3370; J3480; J7030; J7120; Q9967